=== PATIENT | female | born 1960 | race Caucasian/White ===

== ENCOUNTER 2017-12-02 08:51 | Emergency (ER) | payer MEDICAID ==
[~2017-12-02] VITALS: Ht 162.6 cm; Wt 68.0 kg
[2017-12-02 08:58] VITALS: Ht 162.6 cm; Wt 68.0 kg
[2017-12-02 09:53] LABS: CALCIUM 8.4 mg/dL (8.5-10.1); CARBON DIOXIDE 27.2 mmol/L (21-32); CHLORIDE SERUM 107 mmol/L (98-107); CREATININE SERUM 0.8 mg/dL (0.6-1.0); GFR1 > 60 mL/min; GLUCOSE SERUM 91 mg/dL (74-106); POTASSIUM SERUM 3.9 mmol/L (3.5-5.1); SODIUM SERUM 140 mmol/L (136-145)
[2017-12-02 09:58] LABS: ALBUMIN 3.5 g/dL (3.4-5.0); ALKALINE PHOSPHATASE 81 U/L (46-116); ALT/SGPT 24 U/L (14-59); AST/SGOT 22 U/L (15-37); BILIRUBIN TOTAL 0.25 mg/dL (0.20-1.00); HDL CHOLESTEROL 47 mg/dL (40-60); MAGNESIUM 2.2 mg/dL (1.8-2.4); TOTAL PROTEIN, SERUM 7.2 g/dL (6.4-8.2)
[2017-12-02 10:03] LABS: CHOLESTEROL 238 mg/dL (<200)
[2017-12-02 10:04] LABS: BASOPHIL % 0.4 % (0-2); PLATELET COUNT 246 x10^3mcL (130-400)
[2017-12-02 10:24] LABS: RED CELL DISTRIBUTION WIDTH 17.5 % (11.5-14.5)
[2017-12-02 11:47] VITALS: BP 119/72
== END 2017-12-02 11:47 | disposition home or self-care (01) ==
LOC: ED 08:51
PROVIDERS: Emergency Medicine
PROC: BW28ZZZ Computerized Tomography (CT Scan) of Head (ICD-10-PCS; principal; 2017-12-02)
DX: R42 Dizziness and giddiness (principal)
CPT/HCPCS: 36415; 83880; Q0092